=== PATIENT | female | born 1950 | race Native Hawaiian/Other Pacific Islander ===

== ENCOUNTER 2022-08-16 13:44 | Emergency (ER) | payer OTHER ==
[~2022-08-16] VITALS: Ht 167.6 cm; Wt 76.3 kg
[2022-08-16 13:44] VITALS: BP 153/83; TEMP 97.6
[2022-08-16 14:22] LABS: POTASSIUM 3.8 mmol/L (3.6-5.2)
[2022-08-16 14:25] LABS: PLATELET COUNT 195 K/uL (152-353)
[2022-08-16] MEDS ORDERED: INSULIN GL100 UNIT/M SC (16:32)
[2022-08-16] MEDS ORDERED: MEMANTINE HYDRO10 MG PO (16:33)
[2022-08-16] MEDS ORDERED: TEMA15CA19 PO (16:34)
[2022-08-16] MEDS ORDERED: SERTRALINE HYDR50 MG PO (16:35)
[2022-08-16] MEDS ORDERED: BENZ1TAB43 PO (16:36)
[2022-08-16] MEDS ORDERED: ZIPRASIDONE HYD40 MG PO (16:37)
[2022-08-16] MEDS ORDERED: METFORMIN HYD1000 MG PO (16:38)
[2022-08-16] MEDS ORDERED: OXCARBAZEPIN150 MG PO (16:39)
[2022-08-16] MEDS ORDERED: HALO5INJ3 IM (16:45)
== END 2022-08-16 14:59 | disposition still patient (30) ==
LOC: ED 13:44
PROVIDERS: Emergency Medicine
DX: F03.911 Unspecified dementia, unspecified severity, with agitation (principal); Z11.52 Encounter for screening for COVID-19; Z04.6 Encounter for general psychiatric examination, requested by authority
CPT/HCPCS: 80053; 85027; 87635; 93005; 99283; U0003